=== PATIENT | male | born 1965 | race Caucasian/White ===

== ENCOUNTER 2018-09-11 06:19 | Day surgery (SDC) | payer OTHER ==
[2018-09-11] VITALS (17 sets, daily range): BP systolic 134–157; BP diastolic 80–95; PULSE 68–85; RESP 16–18; Ht 160 cm; Wt 88.1 kg
[~2018-09-11] VITALS: Ht 160 cm; Wt 88.1 kg
[2018-09-11] MEDS ORDERED: SOD CHLORIDE 0.9% 1,000 ML IV SCH (07:00)
[2018-09-11] MEDS ORDERED: CEFAZOLIN 2 GM/50 ML (PMX) 50 ML IVPB ONE (07:00)
[2018-09-11] MEDS ORDERED: AMLO-147 PO (07:26)
[2018-09-11] MEDS ORDERED: RANI150T5 PO (07:26)
[2018-09-11] MEDS ORDERED: IBUP-1542 PO (07:27)
--- NOTE | 2018-09-11 08:50 | PREAC ---
Date/Time of Note Date/Time of Note DATE: 09/11/18 TIME: 08:49 Anesthesia Eval and Record Evaluation Time Pre-Procedure Interview DATE: 09/11/18 TIME: 08:49 Age 53 Sex male NPO: 8 hrs Preoperative diagnosis SYMPTOMATIC CHOLELITHIASIS Planned procedure LAP JARRELL Past Medical History Past Medical History: Includes Cardio: HTN GI: Obesity Surgery & Anesthesia Issues No known issue Meds Anticoagulation: No Beta Karuna within 24 hr: No Reason Beta Karuna not given: Pt. not on B-Karuna Reported Medications Ibuprofen* (Motrin*) 600 Mg Tab, 600 MG PO TID PRN for PAIN AND/OR INFLAMMATION, TAB 09/11/18 Amlodipine Besylate* (Amlodipine Besylate*) 10 Mg Tablet, 10 MG PO DAILY, #30 TAB 09/11/18 Ranitidine Hcl* (Ranitidine Hcl*) 150 Mg Tablet, 150 MG PO Q12, #60 TAB 09/11/18 Current Medications Sodium Chloride 1,000 ml @ 75 mls/hr [id number] IV Last administered on 09/11/18at 07:20; Admin Dose 75 MLS/HR; Start 09/11/18 at 07:00 Meds reviewed: Yes Allergies Coded Allergies: No Known Allergy (Unverified , 09/11/18) Allergies Reviewed: Yes Labs/Studies Labs Reviewed: Reviewed by anesthesiologist test: N/A Studies: ECG (NL), CXR (NAPD) Pre-procedure Exam Last vitals Vital Signs Date Temp Pulse Resp B/P (MAP) Pulse Ox O2 O2 Flow FiO2 Time Delivery Rate 09/11/18 98.2 85 16 138/89 95 Room Air 07:24 (105) Airway: Adequate mouth opening, Adequate thyromental dist Mallampati: Mallampati II Teeth: Normal Lung: Normal Heart: Normal ASA Physical Status ASA physical status: 2 Emergency: None Planned Anesthetic General/MAC: ETT Nerve block: TAP (bilateral) Planned Pain Management Parenteral pain med Pre-operative Attestations Prior to commencing anesthesia and surgery, the patient was re-evaluated, there was verification of: *The patient's identity *The results of appropriate recent lab work and preoperative vital signs *The above evaluation not changing prior to induction *Anesthetic plan, risk benefits, alternative and complications discussed with patient/family; questions answered; patient/family understands, accepts and wishes to proceed. Raman Abdi M.D. Sep 11, 2018 08:50
[2018-09-11] MEDS ORDERED: NEOSTIGMINE 3 MG/3 ML SYRINGE ONE (08:54)
[2018-09-11] MEDS ORDERED: GLYCOPYRROLATE 0.4 MG INJ ONE (08:54)
[2018-09-11] MEDS ORDERED: PROPOFOL 20 ML ONE (08:54)
[2018-09-11] MEDS ORDERED: ROCURONIUM 50 MG INJ ONE (08:54)
[2018-09-11] MEDS ORDERED: CEFAZOLIN 1 GM INJ ONE (08:54)
[2018-09-11] MEDS ORDERED: FENTAnyl 50 MCG/ML VIAL ONE ×2 (08:56→09:42)
[2018-09-11] MEDS ORDERED: ONDANSETRON 4 MG INJ ONE (08:56)
[2018-09-11] MEDS ORDERED: MIDAZOLAM 1 MG/ML 2 ML INJ ONE (08:56)
[2018-09-11] MEDS ORDERED: DEXAMETHASONE 4 MG/ML 5 ML INJ ONE (08:56)
[2018-09-11] MEDS ORDERED: TRIMETHOBENZAMIDE 100 MG/ML VIAL IM PRN (09:00)
[2018-09-11] MEDS ORDERED: OXYCODONE/ACETAMINOPHEN (5/325) TAB PO PRN ×2 (09:00)
[2018-09-11] MEDS ORDERED: IPRATROPIUM (NEB) 0.5 MG/2.5 ML AMP HHN PRN (09:00)
[2018-09-11] MEDS ORDERED: hydrALAzine 20 MG INJ IV PRN (09:00)
[2018-09-11] MEDS ORDERED: MEPERIDINE 25 MG INJ IV PRN (09:00)
[2018-09-11] MEDS ORDERED: MIDAZOLAM 1 MG/ML 2 ML INJ IV PRN (09:00)
[2018-09-11] MEDS ORDERED: DIPHENHYDRAMINE 50 MG INJ IV PRN (09:00)
[2018-09-11] MEDS ORDERED: ALBUTEROL 0.083% (NEB) 2.5 MG/3 ML AMP HHN PRN (09:00)
[2018-09-11] MEDS ORDERED: HYDROmorphONE 1 MG/5 ML IV SYRINGE IV PRN ×3 (09:00)
[2018-09-11] MEDS ORDERED: EPHEDrine SULFATE 50 MG/5 ML SYG IV PRN (09:00)
[2018-09-11] MEDS ORDERED: ONDANSETRON 4 MG INJ IV PRN (09:00)
[2018-09-11] MEDS ORDERED: FENTAnyl 50 MCG/ML VIAL IV PRN ×3 (09:00)
[2018-09-11] MEDS ORDERED: LABETALOL HCL 20MG INJ IV PRN (09:00)
[2018-09-11] MEDS ORDERED: ROPIVACAINE 0.5 % 30 ML VIAL ONE (09:02)
--- NOTE | 2018-09-11 09:56 | PAC ---
Date/Time of Note Date/Time of Note DATE: 09/11/18 TIME: 09:56 Post-Anesthesia Notes Post-Anesthesia Note Last documented vital signs Vital Signs Date Temp Pulse Resp B/P (MAP) Pulse Ox O2 O2 Flow FiO2 Time Delivery Rate 09/11/18 98.2 85 16 138/89 95 Room Air 07:24 (105) Activity: WNL Respiratory function: WNL Cardiovascular function: WNL Mental status: Baseline Pain reasonably controlled: Yes Hydration appropriate: Yes Nausea/Vomiting absent: Yes Raman Abdi M.D. Sep 11, 2018 09:56
--- NOTE | 2018-09-11 09:58 | OPR ---
Date/Time of Note Date/Time of Note DATE: 09/11/18 TIME: 09:55 Operative Report Procedure Date: Sep 11, 2018 Preoperative Diagnosis symptomatic gallstones Postoperative Diagnosis Same Operation/Procedure Performed laparoscopic cholecystectomy Surgeon see signature line Box Tender none Anesthesia Type: general Estimated Blood Loss: 0 - 10 ml's Transfusion none Specimen gallbladder Grafts/Implants none Complications none Pt Condition Post Procedure: stable Indications This is a 53-year-old male with some tender gallstones. He requests surgical excision of his gallbladder. Risks alternatives benefits and percent were discussed the patient. In particular potential complications including but not limited to bleeding infection intra-bowel organ injury, bile duct injury need for additional operations were discussed the patient. Patient expressed understanding consents to the operation. Procedure Description Patient is taken to the OR and prepped and draped in usual sterile fashion. Surgical time was performed. IV antibiotics were given. Infraumbilical incision is made with a 15 blade. Dissection with cautery was carried onto the fascia. The fascia was grasped with Amparo's and divided with curved Riley scissors. 0 Vicryl U stitch was placed into the fascia. Bergeron trocar was introduced. Pneumoperitoneum is established. Midepigastric 12 mm optical trochars placed under direct position. Right upper quadrant upper flank 5 mm optical trochars were placed under direct visualization. Upon initial inspection there are some adhesions to the gallbladder which are taken down bluntly. The gallbladder was grasped in the fundus and retracted in a lateral cephalad direction. [place] graspers used to dissect out the cystic duct and cystic artery. The critical view was established. The cystic duct appeared thickened and not amenable to clip curriculum development specialist application. The cystic duct was divided with a 35 mm echelon vascular stapler. The staple line was reinforced with additional clips. The cystic artery was divided 3 clips proximal to distal and the division was performed laparoscopic scissors. The gallbladder was taken off the gallbladder bed. Good hemostasis established. The gallbladder is retrieved using Endo Catch bag. Ports removed under direct visualization. Infraumbilical fascial incision is closed by tying down the 0 Vicryl U stitch. Skin was closed using skin mick. A tap block was provided by the anesthesiologist at the beginning of the case. Dry dressings were applied. Celine BUSBY Sep 11, 2018 09:58
[2018-09-11] MEDS ORDERED: HYDROCODONE/APAP (5/325) TAB PO ONE (10:00)
== END 2018-09-11 11:40 | disposition home or self-care (01) ==
LOC: SDS 06:19
PROVIDERS: ATTEND Surgery
DX: K80.10 Calculus of gallbladder with chronic cholecystitis without obstruction (principal); I10 Essential (primary) hypertension; E66.9 Obesity, unspecified
CPT/HCPCS: 47562; 88304; J0690; J1100; J2250; J2405; J2710; J2795; J3010; Z7512; Z7610